=== PATIENT | male | born 1970 | race African-American/Black ===

== ENCOUNTER 2017-07-31 09:14 | Emergency (ER) | payer OTHER ==
[~2017-07-31] VITALS: Ht 160 cm; Wt 64.4 kg
[~2017-07-31 09:14] MED LIST: CLONIDINE HCL0.1 MG PO; ERYTHROMYC1 APPLICAT LEFT EYE; KEFLEX500 MG PO; METHADONE10 MG PO; MIRALAX255 GM PO; MOTRIN600 MG PO; MOTRIN800 MG PO; NO HOME MEDS; NOHOMEMEDS; NORCO 5/3251 TABLET PO; PROMETHAZINE HC25 M1 PO; SKELAXIN800 MG PO; TORADOL10 MG PO; TRAMADOL HCL50 MG PO; TRAZODONE HCL50 MG PO; TYLENOL WITH C1 EACH PO; VALIUM2 MG PO
[2017-07-31] MEDS ORDERED: FLEXERIL5 MG PO (09:29)
[2017-07-31 09:46] VITALS: BP 110/86
== END 2017-07-31 09:47 | disposition home or self-care (01) ==
LOC: EME 09:14
DX: S39.012A Strain of muscle, fascia and tendon of lower back, initial encounter (principal); V49.60XA Unspecified car occupant injured in collision with unspecified motor vehicles in traffic accident, initial encounter; Y92.410 Unspecified street and highway as the place of occurrence of the external cause; F17.200 Nicotine dependence, unspecified, uncomplicated
CPT/HCPCS: 99281; 99283

== ENCOUNTER 2017-12-17 15:24 | Emergency (ER) | payer OTHER ==
[~2017-12-17] VITALS: Ht 160 cm; Wt 63.1 kg
[~2017-12-17 15:24] MED LIST changes: +FLEXERIL5 MG PO
[2017-12-17] MEDS ORDERED: NARCAN4 MG NS (19:42)
[2017-12-17 19:58] VITALS: BP 130/88
== END 2017-12-17 20:00 | disposition home or self-care (01) ==
LOC: EME 15:24
DX: T40.1X1A Poisoning by heroin, accidental (unintentional), initial encounter (principal); F17.200 Nicotine dependence, unspecified, uncomplicated
CPT/HCPCS: 99281; 99284; J2310